=== PATIENT | male | born 1970 | race Caucasian/White ===

== ENCOUNTER 2016-07-09 20:47 | Emergency (ER) | payer BC, OTHER ==
[~2016-07-09] VITALS: Ht 167.6 cm; Wt 80.0 kg
[~2016-07-09 20:47] MED LIST: PERC5TAB12 PO; PRED1 PO
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
[2016-07-09] MEDS ORDERED: predniSONE 20 MG TAB PO ONE (21:15)
[2016-07-09] MEDS: RESP: ALBUTEROL 2.5 MG/IPRATROPIUM 0.5 MG NEB (SCH) INH (21:32)
--- NOTE | 2016-07-09 21:47 | RADRPT ---
EXAM DATE/TIME: 07/09/2016 21:24 [facility] COMPARISON: CHEST SINGLE AP, June 13, 2016, 5:03. INDICATIONS : Shortness of breath. MEDICAL HISTORY : None. SURGICAL HISTORY : None. ENCOUNTER: Initial ACUITY: 1 day PAIN SCORE: 8/10 LOCATION: Left ankle FINDINGS: A single view of the chest demonstrates the lungs to be symmetrically aerated without evidence of mas s, infiltrate or effusion. The cardiomediastinal contours are unremarkable. Healed clavicle and rib fractures. CONCLUSION: No acute disease. Juan Griffith MD on July 09, 2016 at 21:45 Board Certified Radiologist. This report was verified electronically.
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
[2016-07-09 21:56] VITALS: BP 114/60; PULSE 109; RESP 18; TEMP 98.1; O2SAT 98
[2016-07-09] MEDS ORDERED: PRED-503 PO (22:06)
[2016-07-09] MEDS ORDERED: BACT800T5 PO (22:06)
[2016-07-09] MEDS ORDERED: ALBU6.7H INH (22:06)
[2016-07-09] MEDS ORDERED: IBUPROFEN 600 MG TAB PO ONE (22:15)
[2016-07-09] MEDS ORDERED: SULFAMETHOXAZOLE-TRIMETHOPRIM DS 800-160 MG TAB PO ONE (22:15)
[2016-07-09 22:40] VITALS: BP 115/78
== END 2016-07-09 22:57 | disposition home or self-care (01) ==
LOC: NEDAMB 20:47
DX: S90.02XA Contusion of left ankle, initial encounter (principal); S93.402A Sprain of unspecified ligament of left ankle, initial encounter; J45.21 Mild intermittent asthma with (acute) exacerbation; J44.9 Chronic obstructive pulmonary disease, unspecified; F17.210 Nicotine dependence, cigarettes, uncomplicated; W20.8XXA Other cause of strike by thrown, projected or falling object, initial encounter
CPT/HCPCS: 71010; 73610; 94640; 94664; 99283; J7512

== ENCOUNTER 2016-09-05 19:40 | Emergency (ER) | payer BC ==
[~2016-09-05] VITALS: Ht 167.6 cm; Wt 81.0 kg
[~2016-09-05 19:40] MED LIST changes: +ALBU6.7H INH; +BACT800T5 PO; +PRED-503 PO
[2016-09-05 19:41] VITALS: BP 141/91; PULSE 113; RESP 18; TEMP 98.1; O2SAT 92
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
[2016-09-05 21:52] LABS: AUTOMATED NEUTROPHIL # 2.3 TH/MM3 (1.8-7.7); BASOPHIL % 0.6 % (0.0-2.0); EOSINOPHIL # 0.1 TH/MM3 (0-0.4); EOSINOPHIL % 1.7 % (0.0-4.0); HEMATOCRIT 43.7 % (39.0-51.0); HEMO FLAGS DIFF FINAL; LYMPH % 33.2 % (9.0-44.0); LYMPHOCYTE # 1.5 TH/MM3 (1.0-4.8); MONO % 14.2 % (0.0-8.0); NEUT % 50.3 % (16.0-70.0); PLATELET COUNT 229 TH/MM3 (150-450); RED CELL DISTRIBUTION WIDTH 13.4 % (11.6-17.2); WHITE BLOOD COUNT 4.6 TH/MM3 (4.0-11.0)
[2016-09-05 22:02] LABS: APTT (PATIENT) 31.2 SEC (24.3-30.1); INTERNATIONAL NORMALIZED RATIO 0.8 RATIO; PROTHROMBIN TIME - PATIENT 9.2 SEC (9.8-11.6)
[2016-09-05 22:21] LABS: ANION GAP 12 MEQ/L (5-15); BICARBONATE 24.8 MEQ/L (21.0-32.0); BLOOD UREA NITROGEN 10 MG/DL (7-18); CHLORIDE 102 MEQ/L (98-107); GLOMERULAR FILTRATION RATE 80 ML/MIN (>89); MAGNESIUM 2.2 MG/DL (1.5-2.5); POTASSIUM 3.8 MEQ/L (3.5-5.1); SODIUM (NA) 139 MEQ/L (136-145)
[2016-09-05 22:26] LABS: CREATINE KINASE 175 U/L (39-308)
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
[2016-09-06] MEDS ORDERED: HYDR-3533 PO (03:33)
[2016-09-06] MEDS ORDERED: PRED20 PO (03:43)
[2016-09-06] MEDS ORDERED: ALBU6.7H INH (03:43)
[2016-09-06] MEDS ORDERED: KETOROLAC TROMETHAMINE 60 MG/2 ML (IM) VIAL IM ONE (03:45)
[2016-09-06] MEDS ORDERED: ACETAMINOPHEN/HYDROcodone 325 MG/5 MG TAB PO ONE (03:45)
--- NOTE | 2016-09-06 23:16 | EKG ---
Date Performed: 09/05/2016 Time Performed: 21:09:49 PTAGE: 46 years EKG: Sinus rhythm NORMAL ECG PREVIOUS TRACING : 06/09/2016 17.40 DOCTOR: Jessica Garcia Interpretating Date/Time 09/06/2016 23:13:47
== END 2016-09-06 04:47 | disposition home or self-care (01) ==
LOC: NEPC 19:40
DX: S22.41XA Multiple fractures of ribs, right side, initial encounter for closed fracture (principal); S09.90XA Unspecified injury of head, initial encounter; J44.9 Chronic obstructive pulmonary disease, unspecified; J45.909 Unspecified asthma, uncomplicated; F17.200 Nicotine dependence, unspecified, uncomplicated; Y04.0XXA Assault by unarmed brawl or fight, initial encounter
CPT/HCPCS: 70450; 71010; 71101; 73030; 80048; 82550; 82552; 83735; 83880; 84484; 85025; 85610; 85730; 87804; 93005; 96372; 99285; J1885

== ENCOUNTER 2016-09-16 18:08 | Emergency (ER) | payer BC ==
[~2016-09-16] VITALS: Ht 168.9 cm; Wt 79.5 kg
[~2016-09-16 18:08] MED LIST changes: -BACT800T5 PO; +HYDR-3533 PO; -PERC5TAB12 PO; -PRED1 PO; +PRED20 PO
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
[2016-09-16 18:25] VITALS: BP 128/86; PULSE 109; RESP 18; TEMP 98; O2SAT 91
[2016-09-16] MEDS ORDERED: KETOROLAC TROMETHAMINE 30 MG/ML (IVP) VIAL IV PUSH ONE (18:30)
--- NOTE | 2016-09-16 18:58 | RADHPO ---
EXAM DATE/TIME: 09/16/2016 18:37 [facility] COMPARISON: CHEST SINGLE AP, September 05, 2016, 20:43. INDICATIONS : Shorness of breath. MEDICAL HISTORY : None. prior pnx rt lung SURGICAL HISTORY : None. ENCOUNTER: Initial ACUITY: 1 day PAIN SCORE: 4/10 LOCATION: Bilateral upper chest FINDINGS: A single view of the chest demonstrates the lungs to be symmetrically aerated without evidence of mas s, infiltrate or effusion. The cardiomediastinal contours are unremarkable. Osseous structures are stable and no change compared to the prior study. CONCLUSION: No acute disease. No significant change has occurred. Hunter Fraga MD on September 16, 2016 at 18:56 Board Certified Radiologist. This report was verified electronically.
[2016-09-16] MEDS ORDERED: IBUP800T23 PO (19:08)
[2016-09-16] MEDS ORDERED: ALBUAER3 INH (19:08)
[2016-09-16] MEDS ORDERED: BENZ100 PO (19:08)
[2016-09-16] MEDS ORDERED: PRED50 PO (19:08)
[2016-09-16] MEDS ORDERED: ZITHTAB PO (19:08)
[2016-09-16] MEDS ORDERED: ALBU0.08 NEB (19:08)
[2016-09-16] MEDS ORDERED: BACT800T5 PO (19:10)
[2016-09-16] MEDS ORDERED: BACT2OIN TOPICAL (19:10)
[2016-09-16 19:25] VITALS: BP 124/84
== END 2016-09-16 19:27 | disposition home or self-care (01) ==
LOC: PHEFT 18:08
DX: J45.909 Unspecified asthma, uncomplicated (principal); J44.9 Chronic obstructive pulmonary disease, unspecified; L03.011 Cellulitis of right finger; R06.02 Shortness of breath; F17.210 Nicotine dependence, cigarettes, uncomplicated
CPT/HCPCS: 71010; 96374; 99284; J1885

== ENCOUNTER 2016-09-21 15:40 | Emergency (ER) | payer BC ==
[~2016-09-21] VITALS: Ht 167.6 cm; Wt 79.5 kg
[~2016-09-21 15:40] MED LIST changes: +ALBU0.08 NEB; -ALBU6.7H INH; +ALBUAER3 INH; +BACT2OIN TOPICAL; +BACT800T5 PO; +BENZ100 PO; -HYDR-3533 PO; +IBUP800T23 PO; -PRED-503 PO; -PRED20 PO; +PRED50 PO; +ZITHTAB PO
[2016-09-21 15:49] VITALS: BP 144/90; PULSE 105; RESP 18; TEMP 98.1; O2SAT 97
[2016-09-21] MEDS ORDERED: SODIUM CHLORIDE 0.9% FLUSH 5 ML FLUSH IVF PRN (16:30)
[2016-09-21] MEDS ORDERED: RESP: ALBUTEROL 2.5 MG/IPRATROPIUM 0.5 MG NEB (SCH) INH ONE (16:30)
[2016-09-21] MEDS ORDERED: methylPREDNISolone SOD SUCC 125 MG/2 ML VIAL IVP ONE (16:30)
[2016-09-21 16:34] VITALS: O2SAT 93
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
[2016-09-21 17:21] LABS: AUTOMATED NEUTROPHIL # 4.6 TH/MM3 (1.8-7.7); BASOPHIL # 0.1 TH/MM3 (0-0.2); BASOPHIL % 1.9 % (0.0-2.0); EOSINOPHIL # 0.1 TH/MM3 (0-0.4); EOSINOPHIL % 1.3 % (0.0-4.0); HEMATOCRIT 43.2 % (39.0-51.0); HEMO FLAGS DIFF FINAL; LYMPHOCYTE # 1.4 TH/MM3 (1.0-4.8); MEAN CELL VOLUME 96.5 FL (80.0-100.0); MEAN CORPUSCULAR HEMOGLOBIN 32.2 PG (27.0-34.0); MEAN CORPUSCULAR HGB CONC 33.4 % (32.0-36.0); MONO % 7.5 % (0.0-8.0); NEUT % 68.3 % (16.0-70.0); PLATELET COUNT 265 TH/MM3 (150-450); RED BLOOD COUNT 4.48 MIL/MM3 (4.50-5.90); RED CELL DISTRIBUTION WIDTH 12.2 % (11.6-17.2); WHITE BLOOD COUNT 6.7 TH/MM3 (4.0-11.0)
[2016-09-21 17:28] LABS: CHLORIDE 104 MEQ/L (98-107); POTASSIUM 3.9 MEQ/L (3.5-5.1); SODIUM (NA) 141 MEQ/L (136-145)
[2016-09-21 17:31] LABS: ANION GAP 12 MEQ/L (5-15); BICARBONATE 24.7 MEQ/L (21.0-32.0); BLOOD UREA NITROGEN 10 MG/DL (7-18)
[2016-09-21 17:35] LABS: GLOMERULAR FILTRATION RATE 94 ML/MIN (>89)
[2016-09-21] MEDS ORDERED: PRED20 PO (17:37)
[2016-09-21] MEDS ORDERED: ALBU6.7H INH (17:37)
[2016-09-21 17:38] LABS: CREATINE KINASE 107 U/L (39-308)
[2016-09-21 17:44] VITALS: BP 137/79; PULSE 104; RESP 18; O2SAT 93
[2016-09-21 17:50] LABS: CKMB 1.6 NG/ML (0.5-3.6)
--- NOTE | 2016-09-22 08:18 | EKG ---
Date Performed: 09/21/2016 Time Performed: 17:00:26 PTAGE: 46 years EKG: Sinus rhythm Normal ECG No significant change from prior electrocardiogram. PREVIOUS TRACING : 09/05/2016 21.09 DOCTOR: Keon Fernandez Interpretating Date/Time 09/22/2016 08:16:53
== END 2016-09-21 17:58 | disposition home or self-care (01) ==
LOC: PHED 15:40
DX: J44.1 Chronic obstructive pulmonary disease with (acute) exacerbation (principal); R07.9 Chest pain, unspecified; L98.8 Other specified disorders of the skin and subcutaneous tissue; J45.909 Unspecified asthma, uncomplicated; F17.210 Nicotine dependence, cigarettes, uncomplicated
CPT/HCPCS: 71010; 80048; 82550; 82552; 84484; 85025; 93005; 94664; 96374; 99284; J2930

== ENCOUNTER 2016-12-01 21:20 | Emergency (ER) | payer SELFPAY ==
[~2016-12-01 21:20] MED LIST changes: +ALBU6.7H INH; -BACT800T5 PO; -BENZ100 PO; -IBUP800T23 PO; +PRED20 PO; -ZITHTAB PO
[2016-12-01 21:26] VITALS: BP 119/66; PULSE 113; RESP 16; TEMP 97.8; O2SAT 90
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
[2016-12-01] MEDS ORDERED: SODIUM CHLORIDE 0.9% FLUSH 10 ML FLUSH IVF PRN (21:45)
[2016-12-01 22:13] LABS: AUTOMATED NEUTROPHIL # 1.6 TH/MM3 (1.8-7.7); BASOPHIL % 0.6 % (0.0-2.0); EOSINOPHIL # 0.2 TH/MM3 (0-0.4); EOSINOPHIL % 3.7 % (0.0-4.0); HEMATOCRIT 42.6 % (39.0-51.0); HEMO FLAGS DIFF FINAL; LYMPH % 53.2 % (9.0-44.0); LYMPHOCYTE # 2.7 TH/MM3 (1.0-4.8); MEAN CORPUSCULAR HEMOGLOBIN 33.1 PG (27.0-34.0); MEAN CORPUSCULAR HGB CONC 33.8 % (32.0-36.0); MONO % 10.2 % (0.0-8.0); NEUT % 32.3 % (16.0-70.0); PLATELET COUNT 226 TH/MM3 (150-450); RED BLOOD COUNT 4.35 MIL/MM3 (4.50-5.90); RED CELL DISTRIBUTION WIDTH 13.3 % (11.6-17.2); WHITE BLOOD COUNT 5.1 TH/MM3 (4.0-11.0)
[2016-12-01 22:15] VITALS: O2SAT 93
--- NOTE | 2016-12-01 22:17 | RADRPT ---
EXAM DATE/TIME: 12/01/2016 21:59 [facility] COMPARISON: CHEST SINGLE AP, September 21, 2016, 16:38. INDICATIONS : Shortness of breath. MEDICAL HISTORY : None. SURGICAL HISTORY : None. ENCOUNTER: Initial ACUITY: 1 day PAIN SCORE: 0/10 LOCATION: Bilateral chest FINDINGS: A single view of the chest demonstrates the lungs to be symmetrically aerated without evidence of mas s, infiltrate or effusion. The cardiomediastinal contours are unremarkable. Osseous structures are intact. Old fractures of the rib cage are again noted bilaterally. Old fracture of the left mid clavi bayron is also again noted. CONCLUSION: No acute disease. Kaden Arcos MD on December 01, 2016 at 22:14 Board Certified Radiologist. This report was verified electronically.
--- NOTE | 2016-12-01 22:22 | RADRPT ---
EXAM DATE/TIME: 12/01/2016 22:02 [facility] COMPARISON: SHOULDER LEFT COMPLETE (>2VWS), September 05, 2016, 20:45. INDICATIONS : Continued left shoulder pain from past fractures and trauma, no new trauma. MEDICAL HISTORY : None. SURGICAL HISTORY : None. ENCOUNTER: Initial ACUITY: >1 year PAIN SCORE: 3/10 LOCATION: Left shoulder FINDINGS: The left clavicle remains deformed status post old fracture deformity but is stable. There is no acu te fracture or dislocation. The left shoulder is intact without dislocation or fracture. CONCLUSION: 1. Old fracture deformity involving the left mid clavicle which is stable. 2. No acute fracture or dislocation. Kaden Arcos MD on December 01, 2016 at 22:15 Board Certified Radiologist. This report was verified electronically.
[2016-12-01 22:49] LABS: ALKALINE PHOSPHATASE 139 U/L (45-117); ALT (GPT) 86 U/L (12-78); ANION GAP 13 MEQ/L (5-15); AST (GOT) 103 U/L (15-37); BICARBONATE 23.3 MEQ/L (21.0-32.0); BLOOD UREA NITROGEN 11 MG/DL (7-18); CHLORIDE 106 MEQ/L (98-107); CREATINE KINASE 120 U/L (39-308); GLOMERULAR FILTRATION RATE 72 ML/MIN (>89); POTASSIUM 3.7 MEQ/L (3.5-5.1); SODIUM (NA) 142 MEQ/L (136-145); TOTAL BILIRUBIN ADULT 0.3 MG/DL (0.2-1.0)
[2016-12-01 23:01] LABS: CKMB 0.8 NG/ML (0.5-3.6)
--- NOTE | 2016-12-01 23:10 | PD ---
Physical Exam Date Seen by Provider: December 01, 2016 Time Seen by Provider: 23:08 Narrative The patient is a 46-year-old male was initially evaluated by the mid-level provider. Please refer to the initial history, physical, diagnostic evaluation , and treatment modality plan. The patient was signed out 11 PM with reevaluation after duo nebs and O2 saturation while walking test, pending. Data Data Last Documented VS Vital Signs Date Time Temp Pulse Resp B/P Pulse Ox O2 Delivery O2 Flow Rate FiO2 12/01/16 23:37 92 Room Air 12/01/16 23:21 94 18 116/67 2 12/01/16 21:26 97.8 Orders Complete Blood Count With Diff (12/01/16 21:38) Comprehensive Metabolic Panel (12/01/16 21:38) Ckmb (Isoenzyme) Profile (12/01/16 21:38) Troponin I (12/01/16 21:38) Urinalysis - C+S If Indicated (12/01/16 21:38) Iv Access Insert/Monitor (12/01/16 21:38) Electrocardiogram (12/01/16 21:38) Ecg Monitoring (12/01/16 21:38) Oximetry (12/01/16 21:38) Oxygen Administration (12/01/16 21:38) Chest, Single Ap (12/01/16 21:38) Sodium Chloride 0.9% Flush (Ns Flush) (12/01/16 21:45) Shoulder, Complete (>2vws) (12/01/16 21:40) CKMB (12/01/16 22:05) CKMB% (12/01/16 22:05) Albuterol-Ipratropium Neb (Duoneb Neb) (12/01/16 23:15) Labs Laboratory Tests Test 12/01/16 22:05 White Blood Count 5.1 TH/MM3 Red Blood Count 4.35 MIL/MM3 Hemoglobin 14.4 GM/DL Hematocrit 42.6 % Mean Corpuscular Volume 98.0 FL Mean Corpuscular Hemoglobin 33.1 PG Mean Corpuscular Hemoglobin 33.8 % Concent Red Cell Distribution Width 13.3 % Platelet Count 226 TH/MM3 Mean Platelet Volume 7.7 FL Neutrophils (%) (Auto) 32.3 % Lymphocytes (%) (Auto) 53.2 % Monocytes (%) (Auto) 10.2 % Eosinophils (%) (Auto) 3.7 % Basophils (%) (Auto) 0.6 % Neutrophils # (Auto) 1.6 TH/MM3 Lymphocytes # (Auto) 2.7 TH/MM3 Monocytes # (Auto) 0.5 TH/MM3 Eosinophils # (Auto) 0.2 TH/MM3 Basophils # (Auto) 0.0 TH/MM3 CBC Comment DIFF FINAL Differential Comment Sodium Level 142 MEQ/L Potassium Level 3.7 MEQ/L Chloride Level 106 MEQ/L Carbon Dioxide Level 23.3 MEQ/L Anion Gap 13 MEQ/L Blood Urea Nitrogen 11 MG/DL Creatinine 1.10 MG/DL Estimat Glomerular Filtration 72 ML/MIN Rate Random Glucose 90 MG/DL Calcium Level 8.1 MG/DL Total Bilirubin 0.3 MG/DL Aspartate Amino Transf 103 U/L (AST/SGOT) Alanine Aminotransferase 86 U/L (ALT/SGPT) Alkaline Phosphatase 139 U/L Total Creatine Kinase 120 U/L Creatine Kinase MB 0.8 NG/ML Troponin I LESS THAN 0.02 NG/ML Total Protein 7.2 GM/DL Albumin 3.6 GM/DL [facility] Medical Record Reviewed: Yes Supervised Visit with JAYSON: Yes Interpretation(s) EKG reveals normal sinus rhythm with a rate in 94. No significant ST-T wave changes noted. Last Impressions Shoulder X-Ray 12/[id number] Signed Impressions: Service Date/Time: Thursday, December 01, 2016 22:02 - CONCLUSION: 1. Old fracture deformity involving the left mid clavicle which is stable. 2. No acute fracture or dislocation. Kaden Arcos MD Chest X-Ray 12/[id number] Signed Impressions: Service Date/Time: Thursday, December 01, 2016 21:59 - CONCLUSION: No acute disease. Kaden Arcos MD Laboratory Tests Test 12/01/16 22:05 White Blood Count 5.1 TH/MM3 Red Blood Count 4.35 MIL/MM3 Hemoglobin 14.4 GM/DL Hematocrit 42.6 % Mean Corpuscular Volume 98.0 FL Mean Corpuscular Hemoglobin 33.1 PG Mean Corpuscular Hemoglobin 33.8 % Concent Red Cell Distribution Width 13.3 % Platelet Count 226 TH/MM3 Mean Platelet Volume 7.7 FL Neutrophils (%) (Auto) 32.3 % Lymphocytes (%) (Auto) 53.2 % Monocytes (%) (Auto) 10.2 % Eosinophils (%) (Auto) 3.7 % Basophils (%) (Auto) 0.6 % Neutrophils # (Auto) 1.6 TH/MM3 Lymphocytes # (Auto) 2.7 TH/MM3 Monocytes # (Auto) 0.5 TH/MM3 Eosinophils # (Auto) 0.2 TH/MM3 Basophils # (Auto) 0.0 TH/MM3 CBC Comment DIFF FINAL Differential Comment Sodium Level 142 MEQ/L Potassium Level 3.7 MEQ/L Chloride Level 106 MEQ/L Carbon Dioxide Level 23.3 MEQ/L Anion Gap 13 MEQ/L Blood Urea Nitrogen 11 MG/DL Creatinine 1.10 MG/DL Estimat Glomerular Filtration 72 ML/MIN Rate Random Glucose 90 MG/DL Calcium Level 8.1 MG/DL Total Bilirubin 0.3 MG/DL Aspartate Amino Transf 103 U/L (AST/SGOT) Alanine Aminotransferase 86 U/L (ALT/SGPT) Alkaline Phosphatase 139 U/L Total Creatine Kinase 120 U/L Creatine Kinase MB 0.8 NG/ML Troponin I LESS THAN 0.02 NG/ML Total Protein 7.2 GM/DL Albumin 3.6 GM/DL Differential Diagnosis Differential diagnosis includes COPD exacerbation, asthma, bronchitis, pneumonia , ulnar embolism, pleural effusion, cardiomyopathy, acute coronary syndrome. Narrative Course I, Dr. Baldwin, have reviewed the advance practice practitioner's documentation and am in agreement, met with the patient face to face, made the diagnosis, and the medical decision making was done by me. *My assessment and Findings: 46-year-old male was initially evaluated by the mid -level provider, please refer to the initial history, physical, diagnostic evaluation, and treatment modality plan. Chest x-ray is unremarkable. Laboratory evaluation was unremarkable. The patient was administered to du nebs and there was reevaluated in the emergency department. His walking O2 saturation was 93%. At rest, sleeping, he was 92% with no obvious distress. He continues to have some rhonchi with the wheezes, most likely secondary to bronchitis with underlying COPD. The patient be discharged home on prednisone, Zithromax, and albuterol inhaler. He is advised to follow-up with a primary physician. He is also advised to stop smoking. Diagnosis Primary Impression: Bronchitis Patient Instructions: General Instructions Additional Instruction: Medications as directed. Follow-up with your primary physician. Stop smoking. Return if symptoms worsen or progress. Med/Other Pt SpecificInfo: Prescription(s) given Scripts Albuterol 18 GM Inh (Ventolin Hfa 18 GM Inh)90 Mcg/Act Aer2 Puff INH Q4H PRN ( SHORTNESS OF BREATH) #1 INHALER Ref 0 Prov:Marco Baldwin MD 12/02/16 Azithromycin (Zithromax Z-Clifton)250 Mg Edyk465 Mg PO DIRECTED #1 DSPK Ref 0 500 MG (2 tabs) day 1, then 1 tab days 2-5. Prov:Marco Baldwin MD 12/02/16 Prednisone (Deltasone)20 Mg Tab40 Mg PO DAILY 5 Days Ref 0 Prov:Marco Baldwin MD 12/02/16 Disposition: 01 DISCHARGE HOME Condition: Stable Marco Baldwin MD December 01, 2016 23:10
[2016-12-01] MEDS ORDERED: RESP: ALBUTEROL 2.5 MG/IPRATROPIUM 0.5 MG NEB (SCH) NEB ONE (23:15)
[2016-12-01 23:21] VITALS: BP 116/67; PULSE 94; RESP 18; O2SAT 98
[2016-12-01 23:37] VITALS: O2SAT 92
[2016-12-02] MEDS ORDERED: ZITHTAB PO (01:07)
[2016-12-02] MEDS ORDERED: PRED-503 PO (01:07)
[2016-12-02] MEDS ORDERED: VENTAER INH (01:07)
[2016-12-02 01:51] VITALS: BP 135/78
--- NOTE | 2016-12-02 08:21 | EKG ---
Date Performed: 12/01/2016 Time Performed: 22:23:34 PTAGE: 46 years EKG: Sinus rhythm NORMAL ECG No significant change from prior electrocardiogram. PREVIOUS TRACING : 09/21/2016 17.00 DOCTOR: Keon Fernandez Interpretating Date/Time 12/02/2016 08:20:23
== END 2016-12-02 01:52 | disposition home or self-care (01) ==
LOC: NEPC 21:20
DX: J40 Bronchitis, not specified as acute or chronic (principal); J44.9 Chronic obstructive pulmonary disease, unspecified; R09.3 Abnormal sputum; M25.512 Pain in left shoulder; F17.200 Nicotine dependence, unspecified, uncomplicated; Z87.39 Personal history of other diseases of the musculoskeletal system and connective tissue; Z87.09 Personal history of other diseases of the respiratory system; Z86.59 Personal history of other mental and behavioral disorders
CPT/HCPCS: 71010; 73030; 80053; 82550; 82552; 84484; 85025; 93005; 94664

== ENCOUNTER 2017-03-10 16:39 | Emergency (ER) | payer SELFPAY ==
[~2017-03-10] VITALS: Ht 167.6 cm; Wt 79.5 kg
[~2017-03-10 16:39] MED LIST changes: -ALBU0.08 NEB; -ALBU6.7H INH; -ALBUAER3 INH; -BACT2OIN TOPICAL; +PRED-503 PO; -PRED20 PO; -PRED50 PO; +VENTAER INH; +ZITHTAB PO
[2017-03-10 16:40] VITALS: BP 140/86; PULSE 100; RESP 20; TEMP 98.6; O2SAT 90
[2017-03-10 16:45] VITALS: RESP 20; O2SAT 92
[2017-03-10] MEDS ORDERED: SODIUM CHLORIDE 0.9% FLUSH 10 ML FLUSH IVF PRN ×2 (16:45→17:45)
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
--- NOTE | 2017-03-10 17:02 | RADRPT ---
EXAM DATE/TIME: 03/10/2017 16:48 [facility] COMPARISON: CHEST SINGLE AP, December 01, 2016, 21:59. INDICATIONS : Posterior neck pain, cough, and sore throat. MEDICAL HISTORY : Chronic obstructive pulmonary disease. SURGICAL HISTORY : None. ENCOUNTER: Initial ACUITY: 2 days PAIN SCORE: 10/10 LOCATION: Posterior neck. FINDINGS: A single view of the chest demonstrates the lungs to be symmetrically aerated without evidence of mas s, infiltrate or effusion. The cardiomediastinal contours are unremarkable. Osseous structures are intact. There are old healed left-sided rib fractures again noted. CONCLUSION: No acute disease. There is no evidence of pneumonia. Ty Austin MD on March 10, 2017 at 17:00 Board Certified Radiologist. This report was verified electronically.
[2017-03-10] MEDS: RESP: ALBUTEROL 2.5 MG/IPRATROPIUM 0.5 MG NEB (SCH) INH ×3 (17:09→17:52)
[2017-03-10 17:11] LABS: AUTOMATED NEUTROPHIL # 4.1 TH/MM3 (1.8-7.7); BASOPHIL % 0.6 % (0.0-2.0); EOSINOPHIL # 0.1 TH/MM3 (0-0.4); EOSINOPHIL % 1.1 % (0.0-4.0); HEMATOCRIT 42.8 % (39.0-51.0); HEMO FLAGS DIFF FINAL; LYMPH % 26.2 % (9.0-44.0); LYMPHOCYTE # 1.7 TH/MM3 (1.0-4.8); MEAN CELL VOLUME 96.1 FL (80.0-100.0); MEAN CORPUSCULAR HEMOGLOBIN 32.5 PG (27.0-34.0); MEAN CORPUSCULAR HGB CONC 33.9 % (32.0-36.0); MONO % 7.5 % (0.0-8.0); NEUT % 64.6 % (16.0-70.0); PLATELET COUNT 250 TH/MM3 (150-450); RED BLOOD COUNT 4.46 MIL/MM3 (4.50-5.90); RED CELL DISTRIBUTION WIDTH 12.6 % (11.6-17.2); WHITE BLOOD COUNT 6.4 TH/MM3 (4.0-11.0)
[2017-03-10 17:13] VITALS: O2SAT 92
[2017-03-10] MEDS ORDERED: ACETAMINOPHEN 500 MG CPLT PO ONE (17:15)
[2017-03-10 17:27] LABS: CHLORIDE 103 MEQ/L (98-107); POTASSIUM 3.9 MEQ/L (3.5-5.1); SODIUM (NA) 138 MEQ/L (136-145)
[2017-03-10 17:30] LABS: ANION GAP 12 MEQ/L (5-15); BICARBONATE 23.4 MEQ/L (21.0-32.0)
[2017-03-10 17:31] LABS: BLOOD UREA NITROGEN 8 MG/DL (7-18)
[2017-03-10 17:33] LABS: ALT (GPT) 66 U/L (12-78); AST (GOT) 80 U/L (15-37)
[2017-03-10 17:34] LABS: GLOMERULAR FILTRATION RATE 80 ML/MIN (>89)
[2017-03-10 17:35] LABS: TOTAL BILIRUBIN ADULT 0.6 MG/DL (0.2-1.0)
[2017-03-10 17:36] LABS: ALKALINE PHOSPHATASE 110 U/L (45-117)
[2017-03-10] MEDS ORDERED: SODIUM CHLOR 0.9% 1000 ML INJ 1,000 ML IV ONE (17:41)
[2017-03-10 17:45] VITALS: BP 114/73; PULSE 94; RESP 18; O2SAT 96
[2017-03-10 18:09] LABS: ALCOHOL 267 MG/DL (0-5)
--- NOTE | 2017-03-10 18:50 | RADRPT ---
EXAM DATE/TIME: 03/10/2017 18:22 [facility] COMPARISON: CT BRAIN W/O CONTRAST, September 06, 2016, 2:09. INDICATIONS : Fall three days ago, cephalgia and neck pain. RADIATION DOSE: 59.20 CTDIvol (mGy) MEDICAL HISTORY : Chronic obstructive pulmonary disease. SURGICAL HISTORY : None. ENCOUNTER: Initial ACUITY: 3 days PAIN SCALE: 3/10 LOCATION: Bilateral head TECHNIQUE: Multiple contiguous axial images were obtained of the head. Using automated exposure control and adj ustment of the mA and/or kV according to patient size, radiation dose was kept as low as reasonably a chievable to obtain optimal diagnostic quality images. DICOM format image data is available electro nically for review and comparison. FINDINGS: CEREBRUM: The ventricles are normal for age. No evidence of midline shift, mass lesion, hemorrhage or acute in farction. No extra-axial fluid collections are seen. POSTERIOR FOSSA: The cerebellum and brainstem are intact. The 4th ventricle is midline. The cerebellopontine angle i s unremarkable. EXTRACRANIAL: The visualized portion of the orbits is intact. SKULL: The calvaria is intact. No evidence of skull fracture. CONCLUSION: Negative for an acute process. Sergei Blanchard MD FACR on March 10, 2017 at 18:48 Board Certified Radiologist. This report was verified electronically.
--- NOTE | 2017-03-10 18:51 | RADRPT ---
EXAM DATE/TIME: 03/10/2017 18:22 [facility] COMPARISON: CT CERVICAL SPINE W/O CONTRAST, February 15, 2016, 17:38. INDICATIONS : Fall three days ago, cephalgia and neck pain. RADIATION DOSE: 26.49 CTDIvol (mGy) MEDICAL HISTORY : Chronic obstructive pulmonary disease. SURGICAL HISTORY : None. ENCOUNTER: Initial ACUITY: 3 days PAIN SCALE: 7/10 LOCATION: Bilateral neck TECHNIQUE: Volumetric scanning of the cervical spine was performed. Multiplanar reconstructions in the sagittal, coronal and oblique axial planes were performed. Using automated exposure control and adjustment o f the mA and/or kV according to patient size, radiation dose was kept as low as reasonably achievable to obtain optimal diagnostic quality images. DICOM format image data is available electronically f or review and comparison. FINDINGS: VERTEBRAE: Normal vertebral body height. ALIGNMENT: No evidence of subluxation. C2-C3: The bony spinal canal is normal in size. No evidence of disc bulge or herniation. The neural forami na are bilaterally patent. C3-C4: The bony spinal canal is normal in size. No evidence of disc bulge or herniation. The neural forami na are bilaterally patent. C4-C5: The bony spinal canal is normal in size. No evidence of disc bulge or herniation. The neural forami na are bilaterally patent. C5-C6: The bony spinal canal is normal in size. No evidence of disc bulge or herniation. The neural forami na are bilaterally patent. C6-C7: The bony spinal canal is normal in size. No evidence of disc bulge or herniation. The neural forami na are bilaterally patent. C7-T1: The bony spinal canal is normal in size. No evidence of disc bulge or herniation. The neural forami na are bilaterally patent. CONCLUSION: Negative for fracture. Controlled flexion extension films may be of benefit the benny ent is symptomatic. Sergei Blanchard MD FACR on March 10, 2017 at 18:49 Board Certified Radiologist. This report was verified electronically.
[2017-03-10] MEDS ORDERED: PRED-503 PO (19:10)
[2017-03-10] MEDS ORDERED: ZITHTAB PO (19:10)
[2017-03-10] MEDS ORDERED: VENTAER INH (19:10)
[2017-03-10 19:18] VITALS: BP 105/64
--- NOTE | 2017-03-11 13:45 | EKG ---
Date Performed: 03/10/2017 Time Performed: 17:50:35 PTAGE: 46 years EKG: SINUS TACHYCARDIA ABNORMAL RHYTHM ECG Compared to prior tracing no significant change PREVIOUS TRACING DOCTOR: Abdoulaye Zimmerman Interpretating Date/Time 03/11/2017 13:43:59
== END 2017-03-10 19:25 | disposition home or self-care (01) ==
LOC: PHED 16:39
DX: J44.9 Chronic obstructive pulmonary disease, unspecified (principal); S16.1XXA Strain of muscle, fascia and tendon at neck level, initial encounter; R00.0 Tachycardia, unspecified; R94.31 Abnormal electrocardiogram [ECG] [EKG]; F17.200 Nicotine dependence, unspecified, uncomplicated; Z87.09 Personal history of other diseases of the respiratory system; Z87.39 Personal history of other diseases of the musculoskeletal system and connective tissue; Z86.59 Personal history of other mental and behavioral disorders; W18.39XA Other fall on same level, initial encounter
CPT/HCPCS: 70450; 71010; 72125; 80053; 80307; 84484; 85025; 87040; 93005; 94640; 94664; 96360; 99285; J7030

== ENCOUNTER 2017-03-24 16:34 | Emergency (ER) | payer OTHER ==
[~2017-03-24] VITALS: Ht 167.6 cm; Wt 80.0 kg
[2017-03-24 16:39] VITALS: BP 120/83; PULSE 109; RESP 22; TEMP 98.9; O2SAT 95
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
[2017-03-24] MEDS ORDERED: methylPREDNISolone SOD SUCC 125 MG/2 ML VIAL IM ONE (17:00)
--- NOTE | 2017-03-24 17:08 | RADRPT ---
EXAM DATE/TIME: 03/24/2017 16:38 [facility] COMPARISON: CHEST SINGLE AP, March 10, 2017, 16:48. INDICATIONS : Cough. MEDICAL HISTORY : Chronic obstructive pulmonary disease. SURGICAL HISTORY : None. ENCOUNTER: Subsequent ACUITY: 1 day PAIN SCORE: 10 LOCATION: Bilateral chest FINDINGS: The exam demonstrates COPD changes. There is a focal masslike area of density adjacent to the left hi la. This was not seen on the exam dated 03/10/17 this would suggest it represents an area of consolida tion. Followup post treatment would be warranted to exclude underlying mass. Alternatively, CT imagin g could be performed if more immediate characterization is desired. The visualized bony structures demonstrate old, healed left rib fractures. Note is also made of an ol d left clavicular fracture. CONCLUSION: 1. There is an area of masslike consolidation adjacent to the left nithya new compared to previous of primary concern would be an area of pneumonia since it was not present on previous. Please see above. Rodolfo Blanchard MD on March 24, 2017 at 17:04 Board Certified Radiologist. This report was verified electronically.
[2017-03-24] MEDS ORDERED: ALBUAER3 INH (17:17)
[2017-03-24] MEDS ORDERED: LEVA500T20 PO (17:17)
[2017-03-24] MEDS ORDERED: LEVOFLOXACIN 500 MG TAB PO SCH (17:30)
== END 2017-03-24 17:35 | disposition home or self-care (01) ==
LOC: NEPD 16:34
DX: J44.0 Chronic obstructive pulmonary disease with (acute) lower respiratory infection (principal); J18.9 Pneumonia, unspecified organism; F17.200 Nicotine dependence, unspecified, uncomplicated
CPT/HCPCS: 71010; 96372; 99284; J2930

== ENCOUNTER 2017-04-08 12:20 | Emergency (ER) | payer SELFPAY ==
[~2017-04-08] VITALS: Ht 167.6 cm; Wt 78.0 kg
[~2017-04-08 12:20] MED LIST changes: +ALBUAER3 INH; +LEVA500T20 PO; -PRED-503 PO; -VENTAER INH; -ZITHTAB PO
[2017-04-08 12:25] VITALS: BP 108/79; PULSE 78; RESP 18; TEMP 98; O2SAT 95
[2017-04-08] MEDS ORDERED: cefTRIAXone INJ 1,000 MG in SODIUM CHLORIDE 0.9% INJ 100 ML IV ONE (12:30)
[2017-04-08] MEDS ORDERED: AZITHROMYCIN INJ 500 MG in SODIUM CHLOR 0.9% 250 ML INJ 250 ML IV ONE (12:30)
[2017-04-08] MEDS ORDERED: methylPREDNISolone SOD SUCC 125 MG/2 ML VIAL IV PUSH ONE (12:30)
[2017-04-08] MEDS ORDERED: SODIUM CHLORIDE 0.9% FLUSH 10 ML FLUSH IVF PRN (12:30)
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
[2017-04-08] MEDS: RESP: ALBUTEROL 2.5 MG/3 ML NEB (SCH) INH (12:42)
[2017-04-08 12:58] VITALS: RESP 18; O2SAT 95
[2017-04-08 13:06] LABS: AUTOMATED NEUTROPHIL # 3.2 TH/MM3 (1.8-7.7); BASOPHIL % 0.7 % (0.0-2.0); EOSINOPHIL # 0.1 TH/MM3 (0-0.4); EOSINOPHIL % 1.6 % (0.0-4.0); HEMATOCRIT 43.4 % (39.0-51.0); HEMO FLAGS DIFF FINAL; LYMPH % 25.4 % (9.0-44.0); LYMPHOCYTE # 1.3 TH/MM3 (1.0-4.8); MEAN CORPUSCULAR HEMOGLOBIN 31.6 PG (27.0-34.0); MEAN CORPUSCULAR HGB CONC 33.3 % (32.0-36.0); NEUT % 65.3 % (16.0-70.0); PLATELET COUNT 319 TH/MM3 (150-450); RED BLOOD COUNT 4.57 MIL/MM3 (4.50-5.90); RED CELL DISTRIBUTION WIDTH 12.7 % (11.6-17.2); WHITE BLOOD COUNT 4.9 TH/MM3 (4.0-11.0)
[2017-04-08 13:14] LABS: CHLORIDE 101 MEQ/L (98-107); SODIUM (NA) 137 MEQ/L (136-145)
[2017-04-08 13:18] LABS: ANION GAP 8 MEQ/L (5-15); APTT (PATIENT) 33.4 SEC (24.3-30.1); BICARBONATE 27.9 MEQ/L (21.0-32.0); BLOOD UREA NITROGEN 7 MG/DL (7-18); INTERNATIONAL NORMALIZED RATIO 0.9 RATIO
--- NOTE | 2017-04-08 13:18 | RADRPT ---
EXAM DATE/TIME: 04/08/2017 12:58 [facility] COMPARISON: CHEST SINGLE AP, March 24, 2017, 16:38. INDICATIONS : Short of breath . Diagnosed with pneumonia 10 days ago and on antibiotics. MEDICAL HISTORY : Chronic obstructive pulmonary disease. SURGICAL HISTORY : None. ENCOUNTER: Initial ACUITY: 1 week PAIN SCORE: 2/10 LOCATION: Bilateral chest FINDINGS: Interval resolution of masslike airspace consolidation in the left midlung zone. Cardiomediastinal co ntours are within normal limits. Old left clavicular fracture. Bony structures are otherwise intact. CONCLUSION: 1. Apparent interval resolution of masslike left midlung zone airspace consolidation. Chester Seth MD on April 08, 2017 at 13:16 Board Certified Radiologist. This report was verified electronically.
[2017-04-08 13:21] LABS: ALT (GPT) 89 U/L (12-78); AST (GOT) 131 U/L (15-37); GLOMERULAR FILTRATION RATE 93 ML/MIN (>89)
[2017-04-08 13:23] LABS: TOTAL BILIRUBIN ADULT 0.4 MG/DL (0.2-1.0)
[2017-04-08 13:24] LABS: ALKALINE PHOSPHATASE 167 U/L (45-117); CREATINE KINASE 174 U/L (39-308)
[2017-04-08 13:36] LABS: CKMB 1.4 NG/ML (0.5-3.6)
[2017-04-08] MEDS ORDERED: VENTAER INH (13:43)
[2017-04-08] MEDS ORDERED: MEDR4PAK PO (13:43)
[2017-04-08] MEDS ORDERED: ZITHTAB PO (13:43)
[2017-04-08 13:57] VITALS: BP 105/71; PULSE 88; RESP 16; O2SAT 95
[2017-04-08 15:38] VITALS: BP 110/62; PULSE 74; RESP 18; O2SAT 95
== END 2017-04-08 15:40 | disposition home or self-care (01) ==
LOC: PHED 12:20
DX: J44.0 Chronic obstructive pulmonary disease with (acute) lower respiratory infection (principal); J18.9 Pneumonia, unspecified organism
CPT/HCPCS: 71010; 80053; 82550; 82552; 83605; 83880; 84484; 85025; 85610; 85730; 87070; 87205; 87449; 87804; 94640; 94664; 96365; 96368; 96375; 99284; J0456; J0696; J2930; J7050; J7613

== ENCOUNTER 2017-09-27 12:48 | Emergency (ER) | payer SELFPAY ==
[~2017-09-27] VITALS: Ht 167.6 cm; Wt 78.0 kg
[~2017-09-27 12:48] MED LIST changes: -ALBUAER3 INH; -LEVA500T20 PO; +LEVA500T33 PO; +MEDR4PAK PO; +VENTAER INH; +ZITHTAB PO
[2017-09-27 13:06] VITALS: BP 130/85; PULSE 101; RESP 19; TEMP 98.1; O2SAT 96
[2017-09-27 13:10] VITALS: BP 130/85; O2SAT 99
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
[2017-09-27] MEDS: RESP: ALBUTEROL 2.5 MG/IPRATROPIUM 0.5 MG NEB (SCH) INH ×2 (13:12→15:16)
[2017-09-27] MEDS ORDERED: SODIUM CHLORIDE 0.9% FLUSH 10 ML FLUSH IVF PRN (13:15)
--- NOTE | 2017-09-27 13:40 | RADRPT ---
EXAM DATE/TIME: 09/27/2017 13:16 [facility] COMPARISON: CHEST SINGLE AP, April 08, 2017, 12:58. INDICATIONS : Short of breath. MEDICAL HISTORY : None. SURGICAL HISTORY : None. ENCOUNTER: Initial ACUITY: 1 day PAIN SCORE: 7/10 LOCATION: Bilateral chest FINDINGS: A single view of the chest demonstrates the lungs to be symmetrically aerated without evidence of mas s, infiltrate or effusion. The cardiomediastinal contours are unremarkable. Old left-sided rib fract ures are stable. An old fracture involving the left clavicle is also stable. CONCLUSION: No acute cardiopulmonary disease. Kaden Arcos MD on September 27, 2017 at 13:37 Board Certified Radiologist. This report was verified electronically.
[2017-09-27 14:16] LABS: AUTOMATED NEUTROPHIL # 3.8 TH/MM3 (1.8-7.7); BASOPHIL % 0.5 % (0.0-2.0); EOSINOPHIL # 0.1 TH/MM3 (0-0.4); EOSINOPHIL % 0.8 % (0.0-4.0); HEMOGLOBIN 16.6 GM/DL (13.0-17.0); LYMPH % 32.8 % (9.0-44.0); LYMPHOCYTE # 2.3 TH/MM3 (1.0-4.8); MEAN CELL VOLUME 96.1 FL (80.0-100.0); MEAN CORPUSCULAR HEMOGLOBIN 34.6 PG (27.0-34.0); MEAN PLATELET VOLUME 7.9 FL (7.0-11.0); MONO % 12.6 % (0.0-8.0); MONOCYTE # 0.9 TH/MM3 (0-0.9); NEUT % 53.3 % (16.0-70.0); PLATELET COUNT 205 TH/MM3 (150-450); RED BLOOD COUNT 4.79 MIL/MM3 (4.50-5.90); WHITE BLOOD COUNT 7.2 TH/MM3 (4.0-11.0)
[2017-09-27 14:48] LABS: BANDS 5 % (0-6); LYMPHOCYTES 30 % (9-44); MONOCYTES 15 % (0-8); MYELOCYTES 1 % (0-0); NEUTROPHIL # MANUAL DIFF 3.7 TH/MM3 (1.8-7.7); POLYS (SEG NEUTROPHILS) 46 % (16-70)
[2017-09-27 15:00] LABS: ALBUMIN 3.1 GM/DL (3.4-5.0); BICARBONATE 22.9 MEQ/L (21.0-32.0); CALCIUM 6.4 MG/DL (8.5-10.1); CREATININE 0.71 MG/DL (0.60-1.30); TOTAL BILIRUBIN ADULT 0.4 MG/DL (0.2-1.0)
[2017-09-27 15:02] LABS: CALCIUM-PROTEIN CORRECTED 6.9 MG/DL (8.5-10.1)
[2017-09-27] MEDS ORDERED: CALCIUM GLUCONATE INJ 2 GM in SODIUM CHLORIDE 0.9% INJ 100 ML IV ONE (15:15)
[2017-09-27] MEDS ORDERED: PRED50 PO (17:13)
[2017-09-27] MEDS ORDERED: ZITHTAB PO (17:13)
[2017-09-27] MEDS ORDERED: ALBU6.7H INH (17:13)
[2017-09-27 17:44] VITALS: BP 151/62
--- NOTE | 2017-09-27 19:32 | EKG ---
Date Performed: 09/27/2017 Time Performed: 13:00:48 PTAGE: 47 years EKG: SINUS TACHYCARDIA ABNORMAL RHYTHM ECG PREVIOUS TRACING : 03/10/2017 17.50.35 Since previous tracing, no significant change noted DOCTOR: Kevin Boston Interpretating Date/Time 09/27/2017 19:30:54
== END 2017-09-27 17:45 | disposition home or self-care (01) ==
LOC: NEPC 12:48
DX: J44.9 Chronic obstructive pulmonary disease, unspecified (principal); E83.51 Hypocalcemia; B96.89 Other specified bacterial agents as the cause of diseases classified elsewhere; R00.0 Tachycardia, unspecified; M19.90 Unspecified osteoarthritis, unspecified site; F41.9 Anxiety disorder, unspecified; F17.210 Nicotine dependence, cigarettes, uncomplicated; Z88.5 Allergy status to narcotic agent; Z79.899 Other long term (current) drug therapy
CPT/HCPCS: 71045; 80053; 83880; 85007; 85027; 87040; 87205; 87804; 93005; 94640; 94664; 96365; 99285; J0610

== ENCOUNTER 2017-10-10 22:04 | Emergency (ER) | payer SELFPAY ==
[~2017-10-10 22:04] MED LIST changes: +ALBU6.7H INH; +PRED50 PO
[2017-10-10 22:23] VITALS: BP 122/88; PULSE 92; RESP 21; TEMP 97.8; O2SAT 95
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
[2017-10-10] MEDS ORDERED: predniSONE 20 MG TAB PO ONE (23:30)
[2017-10-10] MEDS ORDERED: SODIUM CHLORIDE 0.9% FLUSH 10 ML FLUSH IVF PRN (23:30)
[2017-10-10] MEDS ORDERED: IBUPROFEN 600 MG TAB PO ONE (23:30)
[2017-10-10] MEDS: RESP: ALBUTEROL 2.5 MG/IPRATROPIUM 0.5 MG NEB (SCH) INH (23:41)
--- NOTE | 2017-10-11 01:08 | RADRPT ---
EXAM DATE/TIME: 10/11/2017 00:10 [facility] COMPARISON: SPINE THORACIC AP/LAT/SW (3VW), January 18, 2015, 19:38. INDICATIONS : Pain in upper thoracic. MEDICAL HISTORY : Chronic obstructive pulmonary disease. SURGICAL HISTORY : None. ENCOUNTER: Initial ACUITY: 1 week PAIN SCORE: 9/10 LOCATION: T-spine FINDINGS: 4 views of the thoracic spine. Bone alignment within normal limits. No evidence of new fracture. Com pression fracture deformity of T12 unchanged. Minimal endplate osteophytes at multiple levels in the mid to lower thoracic spine. CONCLUSION: Vertebral body compression fracture deformity unchanged. No new fracture identified. Mild bony degene rative findings thoracic spine again seen. David Lopez MD on October 11, 2017 at 1:05 Board Certified Radiologist. This report was verified electronically.
[2017-10-11] MEDS ORDERED: PRED20 PO (01:14)
[2017-10-11] MEDS ORDERED: VENTAER INH (01:14)
--- NOTE | 2017-10-11 01:19 | RADRPT ---
EXAM DATE/TIME: 10/11/2017 00:27 [facility] COMPARISON: CT BRAIN W/O CONTRAST, March 10, 2017, 18:22. INDICATIONS : Headaches. RADIATION DOSE: 35.64 CTDIvol (mGy) MEDICAL HISTORY : Chronic obstructive pulmonary disease. SURGICAL HISTORY : None. ENCOUNTER: Initial ACUITY: 4 - 6 days PAIN SCALE: 8/10 LOCATION: cranial TECHNIQUE: Multiple contiguous axial images were obtained of the head. Using automated exposure control and adj ustment of the mA and/or kV according to patient size, radiation dose was kept as low as reasonably a chievable to obtain optimal diagnostic quality images. DICOM format image data is available electro nically for review and comparison. FINDINGS: CEREBRUM: The ventricles are normal for age. No evidence of midline shift, mass lesion, hemorrhage or acute in farction. No extra-axial fluid collections are seen. POSTERIOR FOSSA: The cerebellum and brainstem are intact. The 4th ventricle is midline. The cerebellopontine angle i s unremarkable. EXTRACRANIAL: The visualized portion of the orbits is intact. SKULL: The calvaria is intact. No evidence of skull fracture. CONCLUSION: No acute intracranial findings. David Lopez MD on October 11, 2017 at 1:15 Board Certified Radiologist. This report was verified electronically.
[2017-10-11 01:37] VITALS: BP 128/73
--- NOTE | 2017-10-11 17:16 | EKG ---
Date Performed: 10/10/2017 Time Performed: 23:36:40 PTAGE: 47 years EKG: Sinus rhythm Since the previous tracing, no significant change noted NORMAL ECG PREVIOUS TRACING : 09/27/2017 13.00 DOCTOR: Ronnie Leger Interpretating Date/Time 10/11/2017 17:15:56
== END 2017-10-11 01:39 | disposition home or self-care (01) ==
LOC: NEPD 22:04
DX: J44.1 Chronic obstructive pulmonary disease with (acute) exacerbation (principal); F17.200 Nicotine dependence, unspecified, uncomplicated; F10.20 Alcohol dependence, uncomplicated; R51 Headache; M54.6 Pain in thoracic spine; F41.9 Anxiety disorder, unspecified
CPT/HCPCS: 70450; 72072; 93005; 94640; 94664; 99285; J7512

== ENCOUNTER 2017-12-20 17:19 | Emergency (ER) | payer SELFPAY ==
[2017-12-20] VITALS (9 sets, daily range): BP systolic 91–117; BP diastolic 61–69; PULSE 78–105; RESP 18–22; TEMP 98–98.4; O2SAT 94–99
[~2017-12-20 17:19] MED LIST changes: -LEVA500T33 PO; +PRED20 PO; -ZITHTAB PO
[2017-12-20] MEDS ORDERED: PRED10 PO (17:54)
[2017-12-20 18:56] LABS: AUTOMATED NEUTROPHIL # 3.8 TH/MM3 (1.8-7.7); BASOPHIL # 0.3 TH/MM3 (0-0.2); BASOPHIL % 4.4 % (0.0-2.0); EOSINOPHIL # 0.1 TH/MM3 (0-0.4); EOSINOPHIL % 1.4 % (0.0-4.0); HEMATOCRIT 45.9 % (39.0-51.0); HEMOGLOBIN 15.6 GM/DL (13.0-17.0); LYMPHOCYTE # 1.9 TH/MM3 (1.0-4.8); MEAN CELL VOLUME 98.4 FL (80.0-100.0); MEAN CORPUSCULAR HEMOGLOBIN 33.5 PG (27.0-34.0); MEAN CORPUSCULAR HGB CONC 34.1 % (32.0-36.0); MEAN PLATELET VOLUME 8.2 FL (7.0-11.0); MONO % 5.3 % (0.0-8.0); MONOCYTE # 0.3 TH/MM3 (0-0.9); NEUT % 58.9 % (16.0-70.0); PLATELET COUNT 270 TH/MM3 (150-450); RED BLOOD COUNT 4.67 MIL/MM3 (4.50-5.90); RED CELL DISTRIBUTION WIDTH 12.3 % (11.6-17.2); WHITE BLOOD COUNT 6.4 TH/MM3 (4.0-11.0)
[2017-12-20 19:06] LABS: CHLORIDE 109 MEQ/L (98-107); SODIUM (NA) 142 MEQ/L (136-145)
[2017-12-20 19:08] LABS: CALCIUM 8.3 MG/DL (8.5-10.1)
[2017-12-20 19:09] LABS: BICARBONATE 20.5 MEQ/L (21.0-32.0); BLOOD UREA NITROGEN 10 MG/DL (7-18); GLUCOSE,RANDOM 94 MG/DL (74-106)
[2017-12-20 19:13] LABS: GLOMERULAR FILTRATION RATE 71 ML/MIN (>89)
[2017-12-20 19:17] LABS: TROPONIN I LESS THAN 0.02 NG/ML (0.02-0.05)
--- NOTE | 2017-12-20 19:19 | RADRPT ---
EXAM DATE: 12/20/2017 7:16 PM EDT AGE/SEX: 47 years / Male INDICATIONS: Short of breath. CLINICAL DATA: This is the patient's initial encounter. Patient reports that signs and symptoms have been present for 2 days and indicates a pain score of 5/10. MEDICAL/SURGICAL HISTORY: None. None. [place] [facility] [place]. . FINDINGS: A single AP view of the chest demonstrates the lungs to be symmetrically aerated without evidence of mass, infiltrate or effusion. The cardiomediastinal contours are unremarkable. CONCLUSION: No active disease. Remote left-sided rib fractures. Remote left clavicle fracture. Electronically signed by: Ubaldo Dsouza MD 12/20/2017 7:18 PM EDT
[2017-12-20] MEDS ORDERED: SODIUM CHLORIDE 0.9% FLUSH 10 ML FLUSH IVF PRN (19:45)
[2017-12-20] MEDS ORDERED: methylPREDNISolone SOD SUCC 125 MG/2 ML VIAL IV PUSH ONE (19:45)
[2017-12-20] MEDS: RESP: ALBUTEROL 2.5 MG/IPRATROPIUM 0.5 MG NEB (SCH) INH ×3 (19:57→20:16)
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
[2017-12-20] MEDS ORDERED: ACETAMINOPHEN 325 MG TAB PO ONE (20:00)
[2017-12-20] MEDS ORDERED: ACETAMINOPHEN 650 MG/20.3 ML UDC PO ONE (20:30)
[2017-12-20] MEDS: SODIUM CHLOR 0.9% 1000 ML INJ 1,000 ML IV SCH ×2 (20:32→20:44)
[2017-12-20] MEDS ORDERED: ALBUAER3 INH (22:33)
[2017-12-20] MEDS ORDERED: PRED50 PO (22:33)
--- NOTE | 2017-12-21 14:01 | EKG ---
Date Performed: 12/20/2017 Time Performed: 18:22:18 PTAGE: 47 years EKG: Sinus rhythm NORMAL ECG INTERPRETATION BASED ON A DEFAULT AGE OF 39 YEARS PREVIOUS TRACING : 10/10/2017 23.36 Since the previous tracing, no significant change not ed DOCTOR: Abdoulaye Zimmerman Interpretating Date/Time 12/21/2017 13:54:50
== END 2017-12-20 22:56 | disposition home or self-care (01) ==
LOC: PHED 17:19
DX: J44.1 Chronic obstructive pulmonary disease with (acute) exacerbation (principal); R07.89 Other chest pain; F10.10 Alcohol abuse, uncomplicated; M19.90 Unspecified osteoarthritis, unspecified site; F41.9 Anxiety disorder, unspecified; F17.200 Nicotine dependence, unspecified, uncomplicated; Z79.899 Other long term (current) drug therapy; Z88.5 Allergy status to narcotic agent
CPT/HCPCS: 71045; 80048; 80307; 82550; 82552; 84484; 85025; 93005; 94640; 94664; 96361; 96374; 99285; J2930; J7030